=== PATIENT | male | born 1990 | race Caucasian/White ===

== ENCOUNTER 2020-04-22 08:06 | Emergency (ER) | payer OTHER, SELFPAY ==
[2020-04-22 08:17] VITALS: BP 151/89; PULSE 105; RESP 16; TEMP 37; O2SAT 99
--- NOTE | 2020-04-22 08:17 | ED.UPPEXIN ---
HPI - Extremity Injury (Upper) General Chief Complaint: Extremity Injury, Upper Stated Complaint: Shoulder pain Time Seen by Provider: 04/22/20 08:19 Source: patient and RN notes reviewed Mode of arrival: ambulatory Limitations: no limitations History of Present Illness HPI narrative: This is a 29 years male presents to the office for an evaluation of shoulder pain three to four days. Admits to history of recurrent shoulder pain. 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 [place] has [place] scheduled appointment on Friday for follow-up. He does not think he could take another 12hours of work with this pain. He has tried meloxicam and ibuprofen with no relief. Denies recent trauma or injury. Denies associated symptoms such as chest pain, but palpitation, shortness of breath, or any other illness. Related Data Home Medications Medication Instructions Recorded Confirmed ibuprofen 600 mg PO Q6H 04/22/20 04/22/20 meloxicam 04/22/20 Allergies Allergy/AdvReac Type Severity Reaction Status Date / Time No Known Allergies Allergy Other Uncoded 04/22/20 08:21 Review of Systems Review of Systems: Narrative: CONSTITUTIONAL: Denies feeling ill CARDIOVASCULAR: Denies chest pain, palpitation RESPIRATORY: Denies dyspnea, wheezing GASTROINTESTINAL: Denies abdominal pain, nausea, vomiting SKIN: Denies rash MUSCULOSKELETAL: Denies acute back pain. Reports right shoulder pain as result from training 10years ago. NEUROLOGIC: Denies lightheaded All other systems reviewed are negative, except as documented in HPI. PMFSH Social History Social History Gender identity (if verbalized by the patient): Male Comments At time of signature, I agree with nursing past medical, surgical, social and family history. There is no relevant family history pertinent to the presenting complaint. Exam Narrative: Exam Narrative: GENERAL: This is a well-nourished, well-developed patient, in no apparent distress. CARDIOVASCULAR: Regular rate and rhythm without murmurs, gallops, or rubs. RESPIRATORY: Clear to auscultation. Breath sounds equal bilaterally. No wheezes, rales, or rhonchi. GASTROINTESTINAL: Abdomen soft, non-tender, nondistended. Bowel sounds are active. No hepato-splenomegaly, or palpable masses. No guarding. SKIN: warm, intact with no suspicious lesions or rash, good texture and turgor. NEURO: awake, alert, and oriented to person, place and time. There were no obvious focal neurologic abnormalities. EXTREMITIES:The R shoulder is without obvious asymmetry or deformity when comparing to L shoulder. No surface trauma, ecchymosis, crepitus. No bony deformity of the humerus head. No erythema, warmth, swelling to palpate. Nontender to palpate over the clavicle, A to C joint and bicipital grove. However there is tenderness to palpation of the muscles of the sternocleidomastoid, biceps/triceps, deltoid, trapezius.There is slight limitation of internal, external rotation, flexion/extension. Negative empty can and arm drop test. No axillary tenderness or lymphadenopathy. Normal sensation over the deltoid and ability to flex the arm at the elbow indicated Intacs axillary nerve function. Distal motor is a normal vascular status is intact. Course Vital Signs Vital signs: Vital Signs Temperature 98.6 F 04/22/20 08:17 Pulse Rate 105 H 04/22/20 08:17 Respiratory Rate 16 04/22/20 08:17 Blood Pressure 151/89 H 04/22/20 08:17 Pulse Oximetry 99 04/22/20 08:17 Temperature 98.6 F 04/22/20 08:17 Pulse Rate 105 H 04/22/20 08:17 Respiratory Rate 16 04/22/20 08:17 Blood Pressure 151/89 H 04/22/20 08:17 Pulse Oximetry 99 04/22/20 08:17 MDM - Extremity Injury (Upper) MDM Narrative Medical decision making narrative: Discharge instructions reviewed with patient, as well as provided in writing per nursing staff. The instructions also include
== END 2020-04-22 08:40 | disposition home or self-care (01) ==
PROVIDERS: Emergency Provider Nurse Practitioner
DX: M25.511 Pain in right shoulder (principal)
CPT/HCPCS: 99213; G0463

== ENCOUNTER 2020-04-26 13:41 | Emergency (ER) | payer OTHER, SELFPAY ==
[2020-04-26 13:57] VITALS: BP 136/91; PULSE 97; RESP 16; TEMP 37.1; O2SAT 99
--- NOTE | 2020-04-26 13:57 | ED.UPPEXIN ---
HPI - Extremity Injury (Upper) General Chief Complaint: Extremity Injury, Upper Stated Complaint: right shoulder injury Time Seen by Provider: 04/26/20 13:57 Source: patient and RN notes reviewed History of Present Illness HPI narrative: Patient is a 29-year-old male who presents the urgent care with complaints of right shoulder pain. Patient states that he has a past injury that is been causing him pain doing repetitive movement at work. Patient was seen here on 22 April and was prescribed steroids and lidocaine. Patient states that the medication has been improving his symptoms slightly however he is returning to our facility for an extension of a work note because his PCP office canceled his appointment this week. Patient denies any other acute complaints or new injury. No distress noted. Patient read the plan of care. Related Data Home Medications Medication Instructions Recorded Confirmed ibuprofen 600 mg PO Q6H 04/22/20 04/22/20 meloxicam 04/22/20 Allergies Allergy/AdvReac Type Severity Reaction Status Date / Time No Known Allergies Allergy Other Uncoded 04/22/20 08:21 Review of Systems Review of Systems: Narrative: CONSTITUTIONAL: Denies fever, chills, or sweats. EYES: Denies visual changes, redness, or discharge. ENT: Denies rhinorrhea, congestion, sore throat, or otalgia. CARDIOVASCULAR: Denies chest pain, palpitations, or edema. RESPIRATORY: Denies cough or dyspnea. GASTROINTESTINAL: Denies abdominal pain, nausea, vomiting, or diarrhea. GENITOURINARY: Denies dysuria or hematuria. SKIN: Denies rash or itching. MUSCULOSKELETAL: Reports of chronic right shoulder pain NEUROLOGIC: Denies headache, numbness, or weakness. All other systems reviewed are negative, except as documented in HPI. PMFSH Social History Social History Gender identity (if verbalized by the patient): Male Comments At the time of my signature, I reviewed and agree with the nursing past medical, surgical, social, and family history. There is no relevant family history pertinent to the patient complaint. Exam Narrative: Exam Narrative: GENERAL: This is a well-nourished, well-developed patient, in no apparent distress. HEAD: normocephalic, atraumatic. EYES: PERRL. Sclera clear/white. Vision is grossly intact. EARS: External ears normal NOSE: External nose normal with no obvious nasal discharge, nares without redness, no rhinorrhea. THROAT: Mucous membranes moist NECK: Neck supple SKIN: warm, intact with no suspicious lesions or rash, good texture and turgor. NEURO: awake, alert, and oriented to person, place and time. There were no obvious focal neurologic abnormalities. EXTREMITIES: No obvious deformity or dislocation noted to the right shoulder. No palpable pain noted. Range of motion not tested due to pain. Positive strong right radial pulse with capillary refill less than 2 seconds. Course Vital Signs Vital signs: Vital Signs Temperature 98.8 F 04/26/20 13:57 Pulse Rate 97 04/26/20 13:57 Respiratory Rate 16 04/26/20 13:57 Blood Pressure 136/91 H 04/26/20 13:57 Pulse Oximetry 99 04/26/20 13:57 Temperature 98.8 F 04/26/20 13:57 Pulse Rate 97 04/26/20 13:57 Respiratory Rate 16 04/26/20 13:57 Blood Pressure 136/91 H 04/26/20 13:57 Pulse Oximetry 99 04/26/20 13:57 Reviewed?patient is informed that they may have pre-hypertension or hypertension based on a blood pressure reading in the department. I recommend the patient call the primary care provider listed on their discharge instructions or a physician of their choice this week to arrange follow-up for further evaluation of possible pre-hypertension or hypertension. MDM - Extremity Injury (Upper) MDM Narrative Medical decision making narrative: Patient is aware that our facility does not extend work notes or give patient restrictions for work. Advised the patient to continue using his lidocaine
== END 2020-04-26 14:17 | disposition home or self-care (01) ==
PROVIDERS: Emergency Provider Nurse Practitioner Family
DX: M25.511 Pain in right shoulder (principal)
CPT/HCPCS: 99212; G0463

== ENCOUNTER 2022-01-18 14:42 | Emergency (ER) | payer OTHER, SELFPAY ==
[2022-01-18 14:50] VITALS: BP 145/88; PULSE 102; RESP 16; TEMP 37.1; O2SAT 98
--- NOTE | 2022-01-18 14:52 | ED.NAVMDI ---
HPI - Nausea/Vomiting/Diarrhea General Chief complaint: Nausea/Vomiting/Diarrhea Stated complaint: vomiting Time Seen by Provider: 01/18/22 14:53 Source: patient, RN notes reviewed and old records reviewed Mode of arrival: ambulatory Limitations: no limitations History of Present Illness HPI Narrative: 31-year-old male presents to the [facility] with complaints of nausea and vomiting intermittently for the last week. Concern for strep throat. Patient denies any abdominal pain, chest pain. Denies shortness of breath. Denies any relation to food. Has tried taking Zyrtec. No acid reducers tried. Patient states he is seen by the ID and cannot get an appointment with his provider. MD elicited complaint: nausea and vomiting Related Data Home Medications Medication Instructions Recorded Confirmed meloxicam 15 mg PO DAILY 04/22/20 gabapentin 300 mg PO TID 01/18/22 01/18/22 Allergies Allergy/AdvReac Type Severity Reaction Status Date / Time No Known Allergies Allergy Other Uncoded 01/18/22 15:01 Review of Systems Review of Systems: All systems reviewed & are unremarkable except as noted in HPI and below Constitutional: Constitutional: Reports no additional constitutional complaints, Denies chills and Denies fever(s) Eyes: Eyes: Reports no additional eye complaints ENT: Reports as per HPI and Reports sore throat Cardiovascular: Cardiovascular: Reports no additional cardiovascular complaints, Denies chest pain and Denies dyspnea Respiratory: Respiratory: Reports no additional respiratory complaints, Denies cough, Denies dyspnea and Denies wheezing Gastrointestinal: Gastrointestinal: Reports no additional gastrointestinal complaints, Denies abdominal pain, Denies diarrhea, Reports nausea and Reports vomiting Musculoskeletal: Musculoskeletal: Reports no additional musculoskeletal complaints Integumentary/Breasts: Skin/Breast: Reports system reviewed and no additional complaints, except as docu Neurologic: Reports system reviewed and no additional complaints, except as documented Psychiatric: Psychiatric: Reports no additional psychiatric complaints Allergic/Immunologic: Allergic/Immunologic: Reports no additional allergic/immunologic complaints and Denies wheezing PMFSH Social History Social History Gender identity (if verbalized by the patient): Male Comments At the time of my signature, I reviewed and agree with the nursing past medical, surgical, social, and family history. There is no relevant family history pertinent to the patient complaint. Exam Const: General: healthy appearing, no acute distress and alert Nutritional Appearance: well nourished Orientation/consciousness: patient oriented x3 Limitations: no limitations HENMT: Head: normal to inspection Ears: external ears normal, TM's normal bilaterally and EAC's normal Face and sinus: normal facial exam and face symmetric Mouth: Yes Normal oral and palatal mucosa present Throat: posterior oropharynx normal, tonsils normal, uvula midline and no uvular edema Eyes: Pupils: Equal, round and reactive pupils present Neck: Neck: normal visual inspection, no lymphadenopathy and no meningeal signs Chest: Chest palpation & inspection: normal inspection of the chest Resp: Effort & Inspection: normal respiratory effort and no use of accessory muscles Auscultation: clear to auscultation bilaterally, no crackles, no rales, no rhonchi and no wheezes Cardio: Rate: regular rate Rhythm: regular rhythm GI: GI Palp: Yes Soft to palpation, No Tenderness to palpation present (GI) and No Rebound tenderness present Auscultation: normal bowel sounds Skin: General skin exam: normal color Rashes: no rashes Wounds: no wounds Neuro: General: patient oriented x3, moves all extremities, no meningeal signs and no focal motor deficits Cranial nerves: Yes Equal, round and reactive pupils present Speech: normal spee
== END 2022-01-18 15:33 | disposition home or self-care (01) ==
PROVIDERS: Emergency Provider Nurse Practitioner
DX: J02.0 Streptococcal pharyngitis (principal)
CPT/HCPCS: 87880; 99213; G0463

== ENCOUNTER 2022-04-19 12:31 | Emergency (ER) | payer OTHER, SELFPAY ==
--- NOTE | ~2022-04-19 | XR_ITS ---
EXAMINATION: XR ankle LT min 3V DATE: 04/19/2022 13:22 INDICATION: Lateral left ankle pain post twisting injury TECHNIQUE: Anteroposterior, oblique, mortise, and lateral views of the left ankle were obtained. COMPARISON: None. FINDINGS: Alignment is normal. No fracture. Joint spaces are well maintained. No ankle joint effusion. The so ft tissues are unremarkable. IMPRESSION: 1. . Negative left ankle radiographs. Reviewed, dictated and finalized at location B.
[2022-04-19 12:39] VITALS: BP 141/87; PULSE 90; RESP 16; TEMP 36.1; O2SAT 100
--- NOTE | 2022-04-19 13:31 | ED.LOWEXIN ---
HPI - Extremity Injury (Lower) General Chief Complaint: Extremity Injury, Lower Stated Complaint: Left ankle Pain Time Seen by Provider: 04/19/22 13:32 Source: patient Mode of arrival: ambulatory Limitations: no limitations History of Present Illness HPI Narrative: 31-year-old male presents with pain to lateral aspect left ankle since yesterday. States he is yet he stepped off his front porch onto one of his sons toys that caused left ankle to invert when he fell to the ground. States that he has been elevating and taking ibuprofen with no relief of pain. Is ambulatory with a limp. Pain worse when bearing weight. Range of motion decreased due to pain. Distal neurovascular intact. All systems reviewed and negative except as noted above. Related Data Home Medications Medication Instructions Recorded Confirmed meloxicam 15 mg PO DAILY 04/22/20 gabapentin 300 mg capsule 300 mg PO TID 01/18/22 01/18/22 Allergies Allergy/AdvReac Type Severity Reaction Status Date / Time No Known Allergies Allergy Other Uncoded 01/18/22 15:01 Review of Systems Review of Systems: CONSTITUTIONAL: Denies fever, chills, or sweats. EYES: Denies visual changes, redness, or discharge. ENT: Denies rhinorrhea, congestion, sore throat, or otalgia. CARDIOVASCULAR: Denies chest pain, palpitations, or edema. RESPIRATORY: Denies cough or dyspnea. GASTROINTESTINAL: Denies abdominal pain, nausea, vomiting, or diarrhea. GENITOURINARY: Denies dysuria or hematuria. SKIN: Denies rash or itching. MUSCULOSKELETAL: Denies back pain or myalgia. Reports pain to lateral aspect left ankle. NEUROLOGIC: Denies headache, numbness, or weakness. PSYCHIATRIC: Denies anxiety or depression. All other systems reviewed are negative, except as documented in HPI. PMFSH Social History Social History Gender identity (if verbalized by the patient): Male Comments At time of signature, agree with nursing past medical, surgical, social and family history. There is no relevant family history pertinent to the presenting complaint. Exam Narrative: GENERAL: This is a well-nourished, well-developed patient, in no apparent distress. HEAD: normocephalic, atraumatic. EYES: PERRL. Sclera clear/white. Vision is grossly intact. EARS: External ears normal NOSE: External nose normal NECK: Neck supple, non-tender without lymphadenopathy, masses or thyromegaly. CARDIOVASCULAR: Regular rate and rhythm without murmurs, gallops, or rubs. RESPIRATORY: Clear to auscultation. Breath sounds equal bilaterally. No wheezes, rales, or rhonchi. SKIN: warm, Dry, intact with no suspicious lesions or rash, good texture and turgor. NEURO: awake, alert, and oriented to person, place and time. There were no obvious focal neurologic abnormalities. EXTREMITIES: Tenderness to lateral aspect of left ankle with swelling. Decreased range of motion due to pain. Distal neurovascularly intact, 2+ Course Course Level of Care: Express Care Visit Vital Signs Vital signs: Vital Signs Temperature 36.1 C L 04/19/22 12:39 Pulse Rate 90 04/19/22 12:39 Respiratory Rate 16 04/19/22 12:39 Blood Pressure 141/87 H 04/19/22 12:39 Pulse Oximetry 100 04/19/22 12:39 Oxygen Delivery Room Air 04/19/22 12:39 Temperature 36.1 C L 04/19/22 12:39 Pulse Rate 90 04/19/22 12:39 Respiratory Rate 16 04/19/22 12:39 Blood Pressure 141/87 H 04/19/22 12:39 Pulse Oximetry 100 04/19/22 12:39 Oxygen Delivery Room Air 04/19/22 12:39 Reviewed MDM - Extremity Injury (Lower) MDM Narrative Medical decision making narrative: Discussed x-ray results with patient. No fracture. Placed in Rohit wrap by Amber x-ray tech. Given crutch instruction. Instructed to see his PCP if pain not improving after 2 weeks. Patient is aware of diagnosis, understands and agrees to treatment plan. Anticipatory guidance given. Patient agrees to follow-up as
== END 2022-04-19 14:02 | disposition home or self-care (01) ==
PROVIDERS: Emergency Provider Nurse Practitioner Family
DX: S93.402A Sprain of unspecified ligament of left ankle, initial encounter (principal); W18.09XA Striking against other object with subsequent fall, initial encounter
CPT/HCPCS: 73610; 99213; G0463

== ENCOUNTER 2022-09-20 17:50 | Emergency (ER) | payer OTHER, SELFPAY ==
[2022-09-20 19:05] VITALS: BP 138/86; PULSE 98; RESP 18; TEMP 36.6; O2SAT 98
--- NOTE | 2022-09-20 19:23 | ED.NAVMDI ---
HPI - Nausea/Vomiting/Diarrhea General Chief complaint: Nausea/Vomiting/Diarrhea Stated complaint: Abdominal Pain/Nausea/ Vomiting Time Seen by Provider: 09/20/22 19:05 Source: patient Mode of arrival: ambulatory Limitations: no limitations History of Present Illness HPI Narrative: Abelino is a 32-year-old male patient presenting to clinic today with a history of 2 day nausea and vomiting with mild abdominal discomfort when he has the itching. He denies any stomach cramping. He denies any fever chills. He reports that the last time this happened he was positive for strep. States that his girlfriend just got over strep. Related Data Allergies Allergy/AdvReac Type Severity Reaction Status Date / Time No Known Allergies Allergy Other Uncoded 01/18/22 15:01 Review of Systems Review of Systems: Pertinent positives per HPI. Patient denies any fever, chills, rash, headache, visual changes, dizziness, cough, shortness of breath, chest pain, palpitations, diarrhea, constipation, abdominal pain, or any urinary issues. PMFSH Social History Social History Gender identity (if verbalized by the patient): Male Comments At the time of my signature, I reviewed and agree with the nursing past medical, surgical, social, and family history. There is no relevant family history pertinent to the patient complaint. Exam Narrative: General: Well-developed, well nourished, in no apparent distress Head: Normocephalic, atraumatic Eyes: Pupils equally round and reactive to light bilaterally, EOM intact, sclera and conjunctive clear, no discharge, lids normal Ears: TMs intact and clear, ear canals clear, no drainage, grossly hearing normal. Nose: Nares patent, no discharge, no inflammation, no sinus tenderness. Mouth: Oral pharynx without lesions or masses, good dentition, MMM. Oropharynx red with tonsillar enlargement Neck: Supple, trachea midline, mild enlargement of anterior or posterior cervical nodes, no thyroid masses or goiter palpable. Cardio: Regular rate and rhythm, s1 and s2 normal, no murmur appreciated. Resp: Clear to auscultation bilaterally, no rhonchi, rales, wheezing or rubs Course Course Emergency Course: Portions of this record may have been created with voice recognition software. Level of Care: Express Care Visit Vital Signs Vital signs: Vital Signs Temperature 36.6 C 09/20/22 19:05 Pulse Rate 98 09/20/22 19:05 Respiratory Rate 18 09/20/22 19:05 Blood Pressure 138/86 09/20/22 19:05 Pulse Oximetry 98 09/20/22 19:05 Oxygen Delivery Room Air 09/20/22 19:05 Temperature 36.6 C 09/20/22 19:05 Pulse Rate 98 09/20/22 19:05 Respiratory Rate 18 09/20/22 19:05 Blood Pressure 138/86 09/20/22 19:05 Pulse Oximetry 98 09/20/22 19:05 Oxygen Delivery Room Air 09/20/22 19:05 Vital signs reviewed MDM - Nausea/Vomiting/Diarrhea MDM Narrative Medical decision making narrative: at the time of visit patient is resting comfortably on the exam table. Strep screen was obtained was positive. Prescription for amoxicillin was sent to the pharmacy and supportive measures were discussed with the patient he voiced understanding of discharge instructions agrees to treatment plan. Also sent prescription for Zofran for nausea. Differential Diagnosis Differential diagnosis: Likely gastroenteritis and other ( Strep pharyngitis) Lab Data Labs: Strep Screen Positive Group A Strep *(Reference Range: Negative)* Discharge Plan Discharge Clinical Impression: Strep throat, Nausea & vomiting Patient Disposition: Home, Self-Care Condition: Stable Instructions: Antibiotic Form, Strep Throat (ED), Acute Nausea and Vomiting (ED) Additional Instructions: Strep screen was positive in the clinic today Take prescription medications only as prescribed- amoxicillin and z
== END 2022-09-20 19:36 | disposition home or self-care (01) ==
PROVIDERS: Emergency Provider Nurse Practitioner Family
DX: J02.0 Streptococcal pharyngitis (principal)
CPT/HCPCS: 87880; 99213; G0463

== ENCOUNTER 2023-02-18 12:54 | Emergency (ER) | payer OTHER, SELFPAY ==
[2023-02-18 12:59] VITALS: BP 141/95; PULSE 99; RESP 16; TEMP 36.7; O2SAT 98
[2023-02-18 13:06] VITALS: BP 141/95; PULSE 99; RESP 16; TEMP 36.7; O2SAT 98
--- NOTE | 2023-02-18 13:16 | ED.GENADULT ---
HPI - General Adult General Chief complaint: Nausea/Vomiting/Diarrhea Stated complaint: Sore Throat/Vomiting Time Seen by Provider: 02/18/23 13:18 Source: patient, RN notes reviewed and old records reviewed Mode of arrival: ambulatory Limitations: no limitations History of Present Illness HPI narrative: 32-year-old male presents to the [facility] with complaints of having an upset stomach and nausea last night. States that he made himself vomit this morning. Denies any chest pain or abdominal pain. States when he feels like this he normally has strep throat. Denies any sinus pain, pressure, fevers, sore throat Onset (ago): day(s) (1) Related Data Home Medications Medication Instructions Recorded Confirmed Effexor 02/18/23 Flonase 02/18/23 cetirizine 02/18/23 gabapentin 02/18/23 melatonin 02/18/23 meloxicam 02/18/23 valacyclovir 02/18/23 Allergies Allergy/AdvReac Type Severity Reaction Status Date / Time No Known Allergies Allergy Other Uncoded 02/18/23 13:02 Review of Systems Review of Systems: All systems reviewed & are unremarkable except as noted in HPI and below Constitutional: Constitutional: Reports no additional constitutional complaints Eyes: Eyes: Reports no additional eye complaints ENT: Reports system reviewed and no additional complaints, except as documented Cardiovascular: Cardiovascular: Reports no additional cardiovascular complaints, Denies chest pain and Denies dyspnea Respiratory: Respiratory: Reports no additional respiratory complaints, Denies chest congestion, Denies cough and Denies dyspnea Gastrointestinal: Gastrointestinal: Reports as per HPI, Denies abdominal pain, Reports nausea and Reports vomiting Musculoskeletal: Musculoskeletal: Reports no additional musculoskeletal complaints Integumentary/Breasts: Skin/Breast: Reports system reviewed and no additional complaints, except as docu Neurologic: Reports system reviewed and no additional complaints, except as documented Psychiatric: Psychiatric: Reports no additional psychiatric complaints Allergic/Immunologic: Allergic/Immunologic: Reports no additional allergic/immunologic complaints PMFSH Social History Social History Gender identity (if verbalized by the patient): Male Comments At the time of my signature, I reviewed and agree with the nursing past medical, surgical, social, and family history. There is no relevant family history pertinent to the patient complaint. Exam Const: General: cooperative, healthy appearing, comfortable, no acute distress, well developed, alert and well nourished Nutritional Appearance: well nourished Orientation/consciousness: patient oriented x3 Limitations: no limitations HENMT: Head: normal to inspection Ears: hearing grossly normal bilaterally and external ears normal Face/Nose/Sinus: Normal external nose present, Normal nares present, Normal nasal mucous membranes and turbinates present and normal facial exam Face and sinus: normal facial exam Mouth: Yes Normal oral and palatal mucosa present, Yes lip normal and Yes moist mucous membranes Throat: posterior oropharynx normal and uvula midline Eyes: General: appearance normal, both eyes and all related structures Alignment and Position: alignment normal Periorbital: periorbital findings normal Pupils: Equal, round and reactive pupils present EOM: EOMs intact bilaterally Neck: Neck: normal visual inspection, full ROM, no lymphadenopathy and no meningeal signs Chest: Chest palpation & inspection: normal inspection of the chest Resp: Effort & Inspection: normal respiratory effort and able to speak in complete sentences Auscultation: clear to auscultation bilaterally, no crackles, no rales, no rhonchi and no wheezes Cardio: Rate: regular rate Rhythm: regular rhythm Back/Spine/Pelvis: Cervical Spine: cervical ROM normal Thoracic/Lumbar Spine: No thoracic spinal ten
== END 2023-02-18 13:30 | disposition home or self-care (01) ==
PROVIDERS: Emergency Provider Nurse Practitioner
DX: R11.2 Nausea with vomiting, unspecified (principal)
CPT/HCPCS: 87081; 87880; 99213; G0463

== ENCOUNTER 2023-04-20 14:42 | Emergency (ER) | payer OTHER, SELFPAY ==
[2023-04-20 15:02] VITALS: BP 140/85; PULSE 105; RESP 16; TEMP 36.3; O2SAT 97
[2023-04-20 15:13] LABS: Basophils Absolute Auto 0.1 K/mm3 (0.0-0.1); Basophils Percent Auto 0.6 % (0.2-1.2); Eosinophils Absolute Auto 0.1 K/mm3 (0-0.3); Eosinophils Percent Auto 1.3 % (0-4.4); Hematocrit 46.6 % (42.0-52.0); Hemoglobin 15.9 g/dL (14.0-18.0); Immature Granulocyte Absolute 0.04 K/mm3 (0.00-0.031); Immature Granulocyte Percent A 0.4 % (0-0.5); Lymphocytes Absolute Auto 2.41 K/mm3 (0.9-3.2); Lymphocytes Percent Auto 24.8 % (18.3-44.2); Mean Corpuscular HGB Conc 34.1 g/dl (32-36); Mean Corpuscular Hemoglobin 29.4 pg (26-34); Mean Corpuscular Volume 86.3 fl (80-100); Mean Platelet Volume 9.5 fl (7.4-10.4); Monocytes Absolute Auto 0.5 K/mm3 (0.1-0.6); Monocytes Percent Auto 5.5 % (2.6-8.5); Neutrophils Absolute Auto 6.6 K/mm3 (1.3-6.7); Neutrophils Percent Auto 67.4 % (45.5-73.1); Platelet Count Result 322 k/mm3 (150-375); Red Cell Distribution Width 12.5 % (11.5-14.5); White Blood Count 9.7 K/mm3 (4.5-10.0)
[2023-04-20 15:22] LABS: Appearance Urine Clear (Clear); Bilirubin Urine Negative (Negative); Blood Urine Negative (Negative); Color Urine Yellow (Yellow); Glucose Urine UA Negative (Negative); Ketones Urine Negative (Negative); Leukocyte Esterase Ur Negative LEU/UL (Negative); Nitrate Urine Negative (Negative); Protein Urine Negative (Negative); pH Urine 7.5 (5.0-9.0)
[2023-04-20 15:30] LABS: Add Urine Microscopic? NO
[2023-04-20 15:31] LABS: Alanine Aminotransferase 27 U/L (6-50); Albumin Level 4.5 g/dL (3.5-5.1); Alkaline Phosphatase 102 U/L (38-126); Anion Gap 9 mmol/L (8-16); Aspartate Amino Transferase 31 U/L (17-59); Bilirubin,Total 0.9 mg/dL (0.2-1.3); Blood Urea Nitrogen 8 mg/dL (9-20); Carbon Dioxide 31 mmol/L (22-30); Chloride 100 mmol/L (98-107); Estimated CRCL calculation 136 ml/min; Estimated Glomerular Filt Rate > 60; Glucose 142 mg/dL (65-110); Lipase 57 U/L (23-300); Potassium 3.6 mmol/L (3.4-5.0); Sodium 140 mmol/L (137-145)
[2023-04-20] MEDS: SODIUM CHLORIDE 0.9% IV 1,000 ML 999 ML IV CONT (16:47)
[2023-04-20] MEDS: ONDANSETRON INJ 4 MG/2 ML VIAL IV PUSH (16:47)
--- NOTE | 2023-04-20 17:52 | ED.GENADULT ---
HPI - General Adult General Chief complaint: Nausea/Vomiting/Diarrhea Stated complaint: Nausea Time Seen by Provider: 04/20/23 16:15 History of Present Illness HPI narrative: 32-year-old male presented the emergency department for evaluation of nausea and vomiting started last night. Patient reports he had a meal of wings last night and has since had persistent nausea and vomiting. Patient denies any associated diarrhea. Patient states this does happen intermittently. Patient denies any associate abdominal pain denies any prior history of gallbladder disease. Related Data Home Medications Medication Instructions Recorded Confirmed Effexor 02/18/23 Flonase 02/18/23 cetirizine 02/18/23 gabapentin 02/18/23 melatonin 02/18/23 meloxicam 02/18/23 valacyclovir 02/18/23 Allergies Allergy/AdvReac Type Severity Reaction Status Date / Time No Known Allergies Allergy Other Uncoded 04/20/23 16:26 Review of Systems Review of Systems: All systems reviewed & are unremarkable except as noted in HPI and below PMFSH Social History Social History Gender identity (if verbalized by the patient): Male Exam Narrative: APPEARANCE: Well appearing, no pain, no distress, well-nourished. HEAD: normocephalic, atraumatic. EYES: PERRLA/EOMI, conjunctivae clear. NOSE: Normal no drainage EARS:TMS clear with good light reflex. THROAT: Pharynx clear, no exudate. NECK: Supple. No adenopathy, no masses. RESPIRATORY: Airway patent, respirations nonlabored. Clear to auscultation bilaterally, no rales, rhonchi, wheezing. CARDIOVASCULAR: Regular rate and rhythm without murmurs rubs or gallops. ABDOMINAL: Soft, nontender, nondistended, normal bowel sounds MUSCULOSKELETAL: Moves all extremities. Strength/ROM intact, No edema, No calf tenderness. NEURO: Alert. Cranial nerves II through XII intact. SKIN: Warm, dry. Normal Color Course Course Emergency Course: 32-year-old male presented to ED for evaluation of nausea and vomiting. Patient did feel improved with Zofran. Patient continues to deny associate abdominal pain. Patient was afebrile with no leukocytosis and a stable hemoglobin. Patient has no elevation of his T. bili AST ALT or alk phos. UA shows no signs of infection. Patient was updated the results of his work-up and did feel improved with treatment of IV fluids and IV Zofran patient was comfortable with the plan for discharge and close follow-up. Patient will be provided Zofran and Reglan for home and patient was encouraged to follow a clear liquid diet for the next few days. All questions and concerns were addressed. Vital Signs Vital signs: Vital Signs Temperature 97.4 F L 04/20/23 15:02 Pulse Rate 105 H 04/20/23 15:02 Respiratory Rate 16 04/20/23 15:02 Blood Pressure 140/85 04/20/23 15:02 Pulse Oximetry 97 04/20/23 15:02 Oxygen Delivery Room Air 04/20/23 15:02 Temperature 97.4 F L 04/20/23 15:02 Pulse Rate 90 04/20/23 18:06 Respiratory Rate 18 04/20/23 18:06 Blood Pressure 133/82 04/20/23 18:06 Pulse Oximetry 96 04/20/23 18:06 Oxygen Delivery Room Air 04/20/23 15:02 Medical Decision Making Differential Diagnosis Differential Diagnosis: Nausea vomiting diarrhea, biliary colic, gastritis, enteritis Vital Signs Vital Signs: Vital Signs Temperature 97.4 F L 04/20/23 15:02 Pulse Rate 105 H 04/20/23 15:02 Respiratory Rate 16 04/20/23 15:02 Blood Pressure 140/85 04/20/23 15:02 Pulse Oximetry 97 04/20/23 15:02 Oxygen Delivery Room Air 04/20/23 15:02 Temperature 97.4 F L 04/20/23 15:02 Pulse Rate 90 04/20/23 18:06 Respiratory Rate 18 04/20/23 18:06 Blood Pressure 133/82 04/20/23 18:06 Pulse Oximetry 96 04/20/23 18:06 Oxygen Delivery Room Air 04/20/23 15:02 Lab Data Lab results reviewed: Yes I reviewed the patient's lab results. 04/20/23 15:00 0
[2023-04-20 18:06] VITALS: BP 133/82; PULSE 90; RESP 18; O2SAT 96
== END 2023-04-20 18:08 | disposition home or self-care (01) ==
PROVIDERS: Emergency Provider Emergency Medicine
DX: R11.2 Nausea with vomiting, unspecified (principal)
CPT/HCPCS: 36415; 80053; 81003; 83690; 85025; 96361; 96374; 99284; J2405; J7030

== ENCOUNTER 2023-06-02 09:07 | Emergency (ER) | payer OTHER, SELFPAY ==
--- NOTE | 2023-06-02 09:16 | ED.SKABFB ---
HPI - Skin/Abscess/Foreign Bdy General Chief complaint: Skin/Abscess/Foreign Body Stated complaint: Rash Time Seen by Provider: 06/02/23 09:16 Source: patient Mode of arrival: ambulatory Limitations: no limitations History of Present Illness HPI narrative: Abelino is a 32-year-old male patient presenting to the clinic today with complaints of a rash times 2-3 days. He reports he has recently been out the [place] and developed a rash. No other environmental changes. Denies any fever or chills. Related Data Home Medications Medication Instructions Recorded Confirmed Effexor 02/18/23 Flonase 02/18/23 cetirizine 02/18/23 gabapentin 02/18/23 melatonin 02/18/23 meloxicam 02/18/23 valacyclovir 02/18/23 Allergies Allergy/AdvReac Type Severity Reaction Status Date / Time No Known Allergies Allergy Other Uncoded 06/02/23 09:26 Review of Systems Review of Systems: Pertinent positives per HPI. Patient denies any fever, chills, headache, visual changes, dizziness, cough, runny nose, sore throat, shortness of breath, chest pain, palpitations, nausea, vomiting, diarrhea, constipation, abdominal pain, or any urinary issues. PMFSH Social History Social History Gender identity (if verbalized by the patient): Male Comments At the time of my signature, I reviewed and agree with the nursing past medical, surgical, social, and family history. There is no relevant family history pertinent to the patient complaint. Exam Narrative: General: Well-developed, well nourished, in no apparent distress Head: Normocephalic, atraumatic. Cardio: Regular rate and rhythm, s1 and s2 normal, no murmur appreciated. Resp: Clear to auscultation bilaterally, no rhonchi, rales, wheezing or rubs. Integumentary: [place], warm, and dry, intact without lesion red raised blister-like itchy rash to the bilateral lower extremities Course Course Emergency Course: Portions of this record may have been created with voice recognition software. Level of Care: Express Care Visit Vital Signs Vital signs: Vital signs reviewed MDM - Skin/Abscess/Foreign Bdy MDM Narrative Medical decision making narrative: At the time of visit patient is resting comfortably on the exam table. I suspect patient has dermatitis likely due to poison harshil. Send in prescription for prednisone and triamcinolone cream. Supportive measures were discussed with the patient he voiced understanding discharge instructions agrees to treatment plan. Differential Diagnosis Differential diagnosis: Likely viral exanthem, urticaria, cellulitis, eczema, insect bites and contact dermatitis Discharge Plan Discharge Clinical Impression: Dermatitis Patient Disposition: Home, Self-Care Condition: Stable Instructions: Antibiotic Form, Dermatitis (ED) Additional Instructions: Apply triamcinolone cream as directed Take prednisone as directed Avoid hot showers May apply calamine lotion to rash Avoid scratching and this causes rash to spread May take benadryl 25-50mg every 6 hours as needed for itching. Follow up with your PCP in 3-5 days if symptoms persist or sooner if they worsen Go to the Emergency Room if symptoms worsen- fever, rash spreading with treatment, shortness of breath, tongue swelling, drooling, or chest pain Prescriptions: New prednisone 10 mg tablet 10 mg PO DAILY Qty: 30 0RF Rx Instructions: 60mg po daily on day 1, 40mg po daily on days 2-4, 30mg po daily on days 5-6, 20mg po daily on days 7-8, 10mg po daily on days 9-10 triamcinolone acetonide 0.1 % cream 1 applic topical BID 7 Days Qty: 30 0RF No Action Effexor Flonase cetirizine gabapentin melatonin meloxicam valacyclovir ondansetron 4 mg tablet,disintegrating 4 mg PO Q8H PRN (Reason: nausea
[2023-06-02 09:19] VITALS: BP 138/83; PULSE 95; RESP 16; TEMP 36.6; O2SAT 97
== END 2023-06-02 09:42 | disposition home or self-care (01) ==
PROVIDERS: Emergency Provider Nurse Practitioner Family
DX: L30.9 Dermatitis, unspecified (principal)
CPT/HCPCS: 99213; G0463

== ENCOUNTER 2023-07-28 08:08 | Emergency (ER) | payer OTHER, SELFPAY ==
[2023-07-28 08:12] VITALS: BP 145/90; PULSE 91; RESP 18; TEMP 36.2; O2SAT 96
[2023-07-28 08:19] VITALS: BP 140/80; PULSE 92
[2023-07-28 08:20] VITALS: BP 142/100; PULSE 91
[2023-07-28 08:22] VITALS: BP 143/109; PULSE 89
[2023-07-28 08:26] LABS: Basophils Absolute Auto 0.1 K/mm3 (0.0-0.1); Basophils Percent Auto 0.8 % (0.2-1.2); Eosinophils Absolute Auto 0.2 K/mm3 (0-0.3); Hematocrit 45.6 % (42.0-52.0); Hemoglobin 15.3 g/dL (14.0-18.0); Immature Granulocyte Absolute 0.02 K/mm3 (0.00-0.031); Immature Granulocyte Percent A 0.2 % (0-0.5); Lymphocytes Absolute Auto 2.95 K/mm3 (0.9-3.2); Lymphocytes Percent Auto 33.3 % (18.3-44.2); Mean Corpuscular HGB Conc 33.6 g/dl (32-36); Mean Corpuscular Hemoglobin 29.4 pg (26-34); Mean Corpuscular Volume 87.7 fl (80-100); Mean Platelet Volume 9.6 fl (7.4-10.4); Monocytes Absolute Auto 0.8 K/mm3 (0.1-0.6); Monocytes Percent Auto 8.8 % (2.6-8.5); Neutrophils Absolute Auto 4.9 K/mm3 (1.3-6.7); Neutrophils Percent Auto 54.9 % (45.5-73.1); Platelet Count Result 312 k/mm3 (150-375); Red Cell Distribution Width 12.5 % (11.5-14.5); White Blood Count 8.9 K/mm3 (4.5-10.0)
--- NOTE | 2023-07-28 08:31 | ED.NAVMDI ---
HPI - Nausea/Vomiting/Diarrhea General Chief complaint: Nausea/Vomiting/Diarrhea Stated complaint: N/V Time Seen by Provider: 07/28/23 08:21 History of Present Illness HPI Narrative: Pt presents with nausea dn vomiting for last two days. Pt drank a lot of alcohol two days ago so thought it was related to that but awoke today and still vomiting. Pt had numerous episodes of vomiting yesterday but no diarrhea or abdominal pain or fever. Pt not aware of any sick friends. Related Data Home Medications Medication Instructions Recorded Confirmed Effexor 02/18/23 Flonase 02/18/23 cetirizine 02/18/23 gabapentin 02/18/23 melatonin 02/18/23 meloxicam 02/18/23 valacyclovir 02/18/23 Allergies Allergy/AdvReac Type Severity Reaction Status Date / Time No Known Allergies Allergy Other Uncoded 07/28/23 08:24 Review of Systems Review of Systems: All systems reviewed & are unremarkable except as noted in HPI and below [facility] Social History Social History Gender identity (if verbalized by the patient): Male Exam Const: General: healthy appearing and no acute distress Orientation/consciousness: patient oriented x3 Limitations: no limitations Eyes: Conjunctivae: conjunctivae normal Pupils: Equal, round and reactive pupils present EOM: EOMs intact bilaterally Resp: Effort & Inspection: normal respiratory effort Auscultation: clear to auscultation bilaterally Cardio: Rate: regular rate Rhythm: regular rhythm GI: GI Palp: Yes Soft to palpation and No Tenderness to palpation present (GI) Auscultation: normal bowel sounds Skin: General skin exam: normal color Rashes: no rashes Wounds: no wounds Neuro: General: patient oriented x3, moves all extremities, no meningeal signs and no focal motor deficits Speech: normal speech Extrem: General: normal to inspection and no clubbing, cyanosis or edema Psych: Mental Status: mental status grossly normal Affect: normal affect Attitude: cooperative Course Vital Signs Vital signs: Vital Signs Temperature 97.2 F L 07/28/23 08:12 Pulse Rate 91 07/28/23 08:12 Respiratory Rate 18 07/28/23 08:12 Blood Pressure 145/90 H 07/28/23 08:12 Pulse Oximetry 96 07/28/23 08:12 Oxygen Delivery Room Air 07/28/23 08:12 Temperature 97.2 F L 07/28/23 08:12 Pulse Rate 89 07/28/23 08:22 Respiratory Rate 18 07/28/23 08:12 Blood Pressure 143/109 H 07/28/23 08:22 Pulse Oximetry 96 07/28/23 08:12 Oxygen Delivery Room Air 07/28/23 08:12 MDM - Nausea/Vomiting/Diarrhea MDM Narrative Medical decision making narrative: pt presents with numerous episodes of vomiting over the last two days. Pt denies abdominal pain or fever. Could be related to excessive alcohol consumption two days prio but could also be gastrits related to virus or food posining. Given the numerous episode will checl labs and give IVF and zofran. Pt still nauseated after zofran. will try compazine. compazine relieved nausea. discussed with pt compazine vs zofran going av[facility]. pt would rather try dissolvable zofran rather than po or pr compazine. Lab Data 07/28/23 08:21 07/28/23 08:21 Labs: Lab Results 07/28/23 07/28/23 Range/Units 08:21 08:34 WBC 8.9 (4.5-10.0) K/mm3 RBC 5.20 (4.6-6.20) M/mm3 Hgb 15.3 (14.0-18.0) g/dL Hct 45.6 (42.0-52.0) % MCV 87.7 (80-100) fl MCH 29.4 (26-34) pg MCHC 33.6 (32-36) g/dl RDW 12.5 (11.5-14.5) % Plt Count 312 (150-375) k/mm3 MPV 9.6 (7.4-10.4) fl Immature Gran % (Auto) 0.2 (0-0.5) % Neut % (Auto) 54.9 (45.5-73.1) % Lymph % (Auto) 33.3 (18.3-44.2) % [place] % (Auto) 8.8 H (2.6-8.5) % Eos % (Auto) 2.0 (0-4.4) % Baso % (Auto) 0.8 (0.2-1.2) % Lymph # (Auto) 2.95 (0.9-3.2) K/mm3 [place] # (Auto) 0.8 H (0.1-0.6) K/mm3 Eos # (Auto) 0.2 (0-0.3) K/mm3 Baso # (Auto) 0.1 (0
[2023-07-28] MEDS: ONDANSETRON INJ 4 MG/2 ML VIAL IV PUSH (08:35)
[2023-07-28] MEDS: SODIUM CHLORIDE 0.9% IV 1,000 ML 999 ML IV CONT (08:35)
[2023-07-28 08:53] LABS: Appearance Urine Cloudy (Clear); Bacteria Urine None Seen /hpf; Bilirubin Urine 2+ (Negative); Blood Urine Negative (Negative); Color Urine Dark Yellow (Yellow); Glucose Urine UA Negative (Negative); Ketones Urine 3+ mg/dL (Negative); Leukocyte Esterase Ur Negative LEU/UL (Negative); Mucus Urine Present /lpf; Nitrate Urine Negative (Negative); Protein Urine 1+ mg/dL (Negative); RBC Urine 0-2 /hpf (0-2); Specific Grav Ur 1.029 (1.001-1.035); Squamous Epithelial Cell Urine None seen /hpf (Few); WBC Urine 0-5 /hpf
[2023-07-28 08:54] LABS: Add Urine Microscopic? YES
[2023-07-28 09:27] LABS: Alanine Aminotransferase 32 U/L (6-50); Albumin Level 4.8 g/dL (3.5-5.1); Alkaline Phosphatase 89 U/L (38-126); Anion Gap 8 mmol/L (8-16); Aspartate Amino Transferase 31 U/L (17-59); Bilirubin,Total 1.1 mg/dL (0.2-1.3); Blood Urea Nitrogen 9 mg/dL (9-20); Calcium 9.3 mg/dL (8.4-10.2); Carbon Dioxide 31 mmol/L (22-30); Chloride 98 mmol/L (98-107); Estimated CRCL calculation 134 ml/min; Estimated Glomerular Filt Rate > 60; Glucose 98 mg/dL (65-110); Lipase 85 U/L (23-300); Potassium 3.3 mmol/L (3.4-5.0); Sodium 137 mmol/L (137-145)
[2023-07-28] MEDS: PROCHLORPERAZINE EDISYLATE 10 MG/2 ML VIAL IV PUSH (09:59)
== END 2023-07-28 10:25 | disposition home or self-care (01) ==
PROVIDERS: Emergency Provider Emergency Medicine
DX: K52.9 Noninfective gastroenteritis and colitis, unspecified (principal)
CPT/HCPCS: 36415; 80053; 81001; 83690; 85025; 92960; 96361; 96374; 96375; 99284; J0780; J1200; J2405; J7030

== ENCOUNTER 2023-07-28 11:28 | Emergency (ER) | payer OTHER, SELFPAY ==
[2023-07-28 11:34] VITALS: BP 149/92; PULSE 118; RESP 19; TEMP 36.7; O2SAT 98
[2023-07-28] MEDS: diphenhydrAMINE HCl INJ 50 MG/ML VIAL IV PUSH (11:52)
--- NOTE | 2023-07-28 12:17 | ED.ALLEREA ---
HPI - Allergic Reaction General Chief complaint: Allergic Reaction Stated complaint: reaction to medication-heart racing Time Seen by Provider: 07/28/23 11:42 History of Present Illness HPI narrative: Pt was just seen here in ER for nausea and vomiting. Pt given IVF and zofran and compazine and nausea improved. Pt says he he got home he began feeling very anxious and sweaty and felt really strange like out of body experience so he returned to ER. Related Data Home Medications Medication Instructions Recorded Confirmed Effexor 02/18/23 Flonase 02/18/23 cetirizine 02/18/23 gabapentin 02/18/23 melatonin 02/18/23 meloxicam 02/18/23 valacyclovir 02/18/23 Allergies Allergy/AdvReac Type Severity Reaction Status Date / Time No Known Allergies Allergy Other Uncoded 07/28/23 08:24 Review of Systems Review of Systems: All systems reviewed & are unremarkable except as noted in HPI and below PMFSH Social History Social History Gender identity (if verbalized by the patient): Male Exam Const: General: healthy appearing and no acute distress Nutritional Appearance: well nourished Orientation/consciousness: patient oriented x3 Limitations: no limitations Eyes: EOM: EOMs intact bilaterally Neck: Neck: normal visual inspection Resp: Effort & Inspection: normal respiratory effort Auscultation: clear to auscultation bilaterally Cardio: Rate: regular rate Rhythm: regular rhythm GI: GI Palp: Yes Soft to palpation Auscultation: normal bowel sounds Skin: General skin exam: normal color Other: diapohoretic Neuro: General: patient oriented x3, moves all extremities and no focal motor deficits Speech: normal speech Extrem: General: normal to inspection and no clubbing, cyanosis or edema Psych: Mental Status: mental status grossly normal Affect: Anxious affect present Attitude: cooperative Course Vital Signs Vital signs: Vital Signs Temperature 98.0 F 07/28/23 11:34 Pulse Rate 118 H 07/28/23 11:34 Respiratory Rate 19 07/28/23 11:34 Blood Pressure 149/92 H 07/28/23 11:34 Pulse Oximetry 98 07/28/23 11:34 Oxygen Delivery Room Air 07/28/23 11:34 Temperature 97.6 F 07/28/23 12:48 Pulse Rate 88 10/23/23 12:48 Respiratory Rate 16 07/28/23 12:48 Blood Pressure 136/80 07/28/23 12:48 Pulse Oximetry 100 07/28/23 12:48 Oxygen Delivery Room Air 07/28/23 11:34 MDM - Allergic Reaction MDM Narrative Medical decision making narrative: pt having reaction to compazine given earlier, will give benadryl. Pt feels better after benadryl ok to go home Discharge Plan Discharge Clinical Impression: Adverse reaction to drug Patient Disposition: Home, Self-Care Condition: Improved Instructions: Antibiotic Form, Extrapyramidal Symptoms (ED) Prescriptions: No Action Effexor Flonase cetirizine gabapentin melatonin meloxicam valacyclovir prednisone 10 mg tablet 10 mg PO DAILY Qty: 30 0RF Rx Instructions: 60mg po daily on day 1, 40mg po daily on days 2-4, 30mg po daily on days 5-6, 20mg po daily on days 7-8, 10mg po daily on days 9-10 triamcinolone acetonide 0.1 % cream 1 applic topical BID 7 Days Qty: 30 0RF ondansetron 4 mg tablet,disintegrating 4 mg PO Q8H PRN (Reason: nausea and vomiting) Qty: 14 0RF ondansetron 4 mg tablet,disintegrating 4 mg PO Q8H PRN (Reason: nausea and vomiting) Qty: 14 0RF Follow-up/Referrals: [facility] [Primary Care Provider] -
[2023-07-28 12:48] VITALS: BP 136/80; PULSE 88; RESP 16; TEMP 36.4; O2SAT 100
== END 2023-07-28 12:50 | disposition home or self-care (01) ==
PROVIDERS: Emergency Provider Emergency Medicine
DX: R11.2 Nausea with vomiting, unspecified (principal); T43.3X5A Adverse effect of phenothiazine antipsychotics and neuroleptics, initial encounter
CPT/HCPCS: 96374; 99284; J1200

== ENCOUNTER 2023-10-07 08:25 | Emergency (ER) | payer OTHER, SELFPAY ==
--- NOTE | 2023-10-07 08:31 | ED.URI ---
HPI - URI/Sore Throat General Chief Complaint: Upper Respiratory Infection Stated Complaint: Sinus Time Seen by Provider: 10/07/23 08:31 Source: patient Mode of arrival: ambulatory Limitations: no limitations History of Present Illness HPI Narrative: Patient is 33 y/o M with over 2 weeks of sinus congestion, pressure and pain. Reports non productive cough. Also reports frequent headaches. Denies any fever, chills, nausea, vomiting, diarrhea. Has been taking [id number] medications no relief. Related Data Home Medications Medication Instructions Recorded Confirmed Effexor 40 mg DAILY 02/18/23 Flonase 2 puff miscellaneous DAILY 02/18/23 cetirizine 20 mg PO DAILY 02/18/23 gabapentin 300 mg DAILY 02/18/23 melatonin 02/18/23 meloxicam 7.5 PO DAILY 02/18/23 valacyclovir 02/18/23 Allergies Allergy/AdvReac Type Severity Reaction Status Date / Time promethazine [From Phenergan] Allergy Rash Verified 10/07/23 08:45 Review of Systems Review of Systems: All systems reviewed & are unremarkable except as noted in HPI and below Constitutional: Constitutional: Denies body ache(s), Denies chills, Denies fatigue, Denies fever(s), Denies headache(s), Denies malaise and Denies weakness Eyes: Eyes: Denies blurry vision, Denies itchy eyes and Denies loss of vision ENT: Denies otalgia, Denies headache(s), Reports nasal congestion, Reports sinus pain, Reports sinus pressure and Denies sore throat Cardiovascular: Cardiovascular: Denies chest pain, Denies irregular heart rhythm and Denies dyspnea Respiratory: Respiratory: Reports cough and Denies dyspnea Gastrointestinal: Gastrointestinal: Denies abdominal pain, Denies diarrhea, Denies nausea and Denies vomiting Musculoskeletal: Musculoskeletal: Denies back pain, Denies myalgias and Denies arthralgias Integumentary/Breasts: Skin/Breast: Denies pruritus and Denies rash Neurologic: Denies headache(s), Denies loss of vision and Denies weakness Psychiatric: Psychiatric: Reports no additional psychiatric complaints Endocrine: Endocrine: Denies fatigue Allergic/Immunologic: Allergic/Immunologic: Denies itchy eyes PMFSH Social History Social History Gender identity (if verbalized by the patient): Male Comments At time of signature, agree with nursing past medical, surgical, social and family history. There is no relevant family history pertinent to the presenting complaint. Exam Const: General: cooperative, healthy appearing, comfortable, no acute distress and well nourished Nutritional Appearance: well nourished Orientation/consciousness: patient oriented x3 Limitations: no limitations HENMT: Head: normal to inspection, normocephalic and atraumatic Ears: hearing grossly normal bilaterally, external ears normal, TM's normal bilaterally, EAC's normal and no periauricular adenopathy Face/Nose/Sinus: Normal external nose present, Abnormal mucous membranes and turbinates present erythematous bilateral and diffuse, normal facial exam, face symmetric and Facial tenderness on exam of face and sinuses Face and sinus: normal facial exam, sinuses nontender and face symmetric Mouth: Yes Normal oral and palatal mucosa present, Yes lip normal, Yes tongue normal, Yes Normal salivary glands and ducts present, Yes oropharynx normal and Yes moist mucous membranes Teeth and gingiva: dentition normal Throat: posterior oropharynx normal, tonsils normal and uvula midline Eyes: General: appearance normal, both eyes and all related structures Alignment and Position: alignment normal and position normal Periorbital: periorbital findings normal Eyelids: eyelids normal Pupils: Equal, round and reactive pupils present Neck: Neck: normal visual inspection, full ROM, no lymphadenopathy and supple Chest: Chest palpation & inspection: normal inspection of the chest and normal palpation of entire chest wall Resp: Effort & Inspection:
[2023-10-07 08:34] VITALS: BP 142/91; PULSE 96; RESP 16; TEMP 36.6; O2SAT 97
== END 2023-10-07 08:59 | disposition home or self-care (01) ==
PROVIDERS: Emergency Provider Nurse Practitioner Family
DX: J01.40 Acute pansinusitis, unspecified (principal)
CPT/HCPCS: 99213; G0463